=== PATIENT | male | born 1980 | race Caucasian/White ===

== ENCOUNTER 2019-11-29 20:19 | Emergency (ER) | payer BC ==
[2019-11-29] MEDS ORDERED: Promethazine HCl 25 MG/ML VIAL ONE (20:58)
[2019-11-29] MEDS ORDERED: Sodium Chloride 0.9% 1,000 ML ONE ×3 (20:58→22:49)
[2019-11-29 21:07] LABS: Hemoglobin 21.1 g/dL (14.0-18.0); Mean Corpuscular HGB CONC 31.7 g/dL (32.0-36.0); Mean Corpuscular Hemoglobin 29.3 pg (27.0-31.0); Mean Corpuscular Volume 92.3 fL (78.0-98.0); Mean Platelet Volume 7.3 fL (7.4-10.4); Platelet Count 368 thou/uL (130-400); RBC Distribution Width 11.5 % (11.5-14.5); Red Blood Cell (RBC) Count Greater than 7.09 mill/uL (4.70-6.10); White Blood Cell (WBC) Count 19.9 thou/uL (4.8-10.8)
[2019-11-29] MEDS ORDERED: Fentanyl 100 MCG/2 ML VIAL ONE (21:10)
[2019-11-29] MEDS ORDERED: Guaifenesin DM 100-10/5 ML UDCUP ONE ×2 (21:20→21:21)
[2019-11-29 21:23] LABS: ALT (SGPT) 39 U/L (8-55); AST (SGOT) 22 U/L (5-34); Albumin 4.6 g/dL (3.5-5.0); Alkaline Phosphatase 66 U/L (40-110); Anion Gap 18 mmol/L (10-20); BUN (Urea Nitrogen) 12 mg/dL (8.9-20.6); Bilirubin, Total 0.9 mg/dL (0.2-1.2); Calc. Creatinine Clearance 0 mL/min (70-130); Calcium 9.8 mg/dL (7.8-10.44); Carbon Dioxide 15 mmol/L (22-29); Chloride 106 mmol/L (98-107); Estimated GFR-MDRD 36; Globulin 3.7 g/dL (2.4-3.5); Glucose 166 mg/dL (70-105); Potassium 4.7 mmol/L (3.5-5.1); Protein, Total 8.3 g/dL (6.0-8.3); Sodium 134 mmol/L (136-145)
[2019-11-29 21:42] LABS: Manual Diff?? YES
[2019-11-29 21:43] LABS: Band 15 % (5-11); Eosinophils 2 % (0-10); Hypochromia SLIGHT = 6-15 cells (100X) (0-5/hpf); Lymphocytes 2 % (21-51); Monocytes 1 % (0-10); Neutrophil 87 % (42-75)
[2019-11-29 21:44] LABS: Platelet Morphology Comment Appears Adequate
[2019-11-29 21:47] LABS: Diff Comment (RBC Morph SCRN) @POLYCYTHEMIA
[2019-11-29 21:49] LABS: MDiff Complete? YES
--- NOTE | 2019-11-29 22:11 | CT ---
EXAM: CT abdomen and pelvis with IV contrast PROVIDED CLINICAL HISTORY: Abdominal pain COMPARISON: None FINDINGS: The visualized lung bases are free of significant opacity. The solid abdominal organs demonstrate an unremarkable CT appearance. There is no bowel dilatation, inflammatory fat stranding, free fluid or free air apparent. There is n o evidence for appendicitis. Diffuse colonic wall thickening. Mural thickening involving distal small bowel within the right lower quadrant. No regional lymph node enlargement apparent. The regional major vascular structures appear unremarkab le. The osseous structures demonstrate no concerning lytic or blastic lesions. IMPRESSION: Diffuse colonic and distal small bowel wall thickening, with distribution favoring inflammatory bowel disease. Infectious etiologies are possible but considered less likely.
[2019-11-29] MEDS ORDERED: Sodium Chloride 0.9% 100 ML ONE (22:49)
[2019-11-29] MEDS ORDERED: diphenhydrAMINE 50 MG/ML VIAL ONE (22:49)
[2019-11-29] MEDS ORDERED: cefTRIAXone\\ROCEPHIN 1 GM VIAL ONE (22:49)
[2019-11-29 22:50] LABS: Bilirubin Negative (Negative); Blood, Urine Trace (Negative); Glucose, Urine (Dipstick) 100 mg/dL (Negative); Leukocyte Negative (Negative); Nitrite Negative (Negative); Protein, Urine (Dipstick) 100 mg/dL (Neg-Trace); Urobilinogen 0.2 mg/dL (Less than 2)
[2019-11-29 22:51] LABS: Clarity Slightly Cloudy (Clear)
[2019-11-29 22:59] LABS: Bacteria/HPF None Seen HPF (None Seen); RBC/HPF 0-3 HPF (0-3); Squamous Epithelial None Seen HPF (0-3); WBC/HPF None Seen HPF (0-3)
[2019-11-29 23:00] LABS: Amphetamine Detected (NotDetected); Cocaine Metabolite Screen Not Detected (NotDetected); Methamphetamine Not Detected (NotDetected); Opiate Screen Not Detected (NotDetected); Phencyclidine (PCP) Not Detected (NotDetected); THC/Cannabinoid Screen Not Detected (NotDetected)
[2019-11-29 23:01] LABS: Barbiturates Screen Not Detected (NotDetected); Benzodiazepine Screen Detected (NotDetected); Medtox Control Line Valid? VALID (VALID); Methadone Not Detected (NotDetected); Oxycodone Screen Not Detected (NotDetected); Tricyclic Screen Not Detected (NotDetected)
[2019-11-29] MEDS ORDERED: metroNIDAZOLE 500 MG/100 ML BAG ONE (23:16)
[2019-11-29] MEDS ORDERED: Ondansetron PF 4 MG/2 ML Vial ONE (23:16)
[2019-11-30 00:36] LABS: Lactic Acid 1.4 mmol/L (0.5-2.2)
== END 2019-11-30 01:29 | disposition short-term general hospital (02) ==
LOC: MADERS 20:19
DX: K52.9 Noninfective gastroenteritis and colitis, unspecified (principal); E87.2 Acidosis; E86.0 Dehydration; J45.909 Unspecified asthma, uncomplicated; F17.220 Nicotine dependence, chewing tobacco, uncomplicated; Z79.51 Long term (current) use of inhaled steroids
CPT/HCPCS: 74177; 80053; 80306; 81003; 81015; 83605; 85025; 87804; 96361; 96365; 96366; 96367; 96375; J0500; J0696; J1200; J2405; J2550; J3010; J3490; J7050

== ENCOUNTER 2023-11-23 19:48 | Emergency (ER) | payer BC, SELFPAY ==
[2023-11-23] MEDS ORDERED: Sodium Chloride 0.9% 1,000 ML ONE (20:14)
[2023-11-23] MEDS ORDERED: Ketorolac Tromethamine 30 MG/ML VIAL ONE (20:14)
[2023-11-23] MEDS ORDERED: Ondansetron PF 4 MG/2 ML Vial ONE (20:14)
[2023-11-23 20:24] LABS: Band 2 % (5-11); Burr Cells SLIGHT = 2-5 cells (100X) (0-1/hpf); Hematocrit 58.2 % (42.0-52.0); Hemoglobin 18.5 g/dL (14.0-18.0); Lymphocytes 8 % (21-51); MDiff Complete? YES; Mean Corpuscular HGB CONC 31.8 g/dL (32.0-36.0); Mean Corpuscular Hemoglobin 29.4 pg (27.0-31.0); Mean Corpuscular Volume 92.4 fl (78.0-98.0); Monocytes 9 % (0-10); Neutrophil 81 % (42-75); Platelet Adequacy Comment Appears Adequate; Platelet Count 321 10x3/uL (130-400); White Blood Cell (WBC) Count 14.7 10x3/uL (4.8-10.8)
[2023-11-23 20:35] LABS: ALT (SGPT) 33 U/L (8-55); AST (SGOT) 15 U/L (5-34); Albumin 4.4 g/dL (3.5-5.0); Alkaline Phosphatase 79 U/L (40-110); Anion Gap 19 mmol/L (10-20); BUN (Urea Nitrogen) 30 mg/dL (8.9-20.6); Bilirubin, Total 0.8 mg/dL (0.2-1.2); Calc. Creatinine Clearance 0 mL/min (70-130); Calcium 9.8 mg/dL (7.8-10.44); Carbon Dioxide 21 mmol/L (22-29); Chloride 98 mmol/L (98-107); Estimated GFR 39; Globulin 3.2 g/dL (2.4-3.5); Glucose 123 mg/dL (70-105); Potassium 3.8 mmol/L (3.5-5.1); Protein, Total 7.6 g/dL (6.0-8.3); Sodium 134 mmol/L (136-145)
[2023-11-23 20:36] LABS: Acetaminophen Less than 10 mcg/mL (10.0-30.0); Alcohol Less than 10.0 mg/dL (Less than 10); Lipase 22 U/L (8-78); Magnesium 1.9 mg/dL (1.6-2.6); Salicylate Less than 8.0 mg/dL (15.0-30.0); Troponin I 0.044 ng/mL (< 0.028)
[2023-11-23] MEDS ORDERED: Sodium Chloride 0.9% 100 ML ONE (20:59)
[2023-11-23] MEDS ORDERED: Piperacillin/Tazobactam 3.375 GM VIAL ONE (20:59)
[2023-11-23] MEDS ORDERED: Sodium Chloride 0.9% 2,000 ML ONE (20:59)
[2023-11-23] MEDS ORDERED: diphenhydrAMINE 50 MG/ML VIAL ONE (21:42)
== END 2023-11-23 21:59 | disposition short-term general hospital (02) ==
LOC: MADERS 19:48
DX: A09 Infectious gastroenteritis and colitis, unspecified (principal); R65.10 Systemic inflammatory response syndrome (SIRS) of non-infectious origin without acute organ dysfunction; I21.4 Non-ST elevation (NSTEMI) myocardial infarction; J45.909 Unspecified asthma, uncomplicated; F17.220 Nicotine dependence, chewing tobacco, uncomplicated; Z79.899 Other long term (current) drug therapy
CPT/HCPCS: 74177; 80053; 80307; 83605; 83690; 83735; 84484; 85025; 87040; 87804; 93005; 96361; 96365; 96375; J1200; J1885; J2405; J2543; J3490; J7050